=== PATIENT | female | born 1955 | race African-American/Black ===

== ENCOUNTER 2025-04-04 09:08 | Outpatient (CLI) | payer OTHER | END 2025-04-04 09:09 | disposition home or self-care (01) | LOC: ULT 09:08 | PROVIDERS: ATTEND Internal Medicine Gastroenterology | DX: K74.60 Unspecified cirrhosis of liver (principal); B16.2 Acute hepatitis B without delta-agent with hepatic coma; R18.8 Other ascites | CPT/HCPCS: 76705 ==